=== PATIENT | male | born 1935 | race Caucasian/White ===

== ENCOUNTER 2020-06-13 07:58 | Outpatient (CLI) | payer MEDICARE, OTHER ==
--- NOTE | 2020-06-13 11:07 | CT ---
CT ABDOMEN AND PELVIS WITH ND WITHOUT IV CONTRAST: DATE: 06/13/2020. PROVIDED CLINICAL HISTORY: Hematuria. FINDINGS: Comparison is made with the examination dated 09/23/2019. The visualized lung bases are free of significant opacity. The spleen, pancreas, liver, and adrenal glands appear unremarkable. Small nonobstructing calculi are again seen involving each kidney. There is no evidence for hydronep hrosis. Bilateral renal cysts and additional hypodensities too small to definitively characterize bu t statistically also reflecting cysts are redemonstrated. 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 There is no evidence for filling defect involving the re nal collecting systems or opacified ureters. The urinary bladder appears unremarkable. There is a small bowel containing and fat containing right inguinal hernia without evidence for bowel obstruction or associated inflammatory change. There is no inflammatory fat stranding, free fluid, or lymph node enlargement apparent. Vascular calcifications are demonstrated. Degenerative changes are again seen involving the spine. No concerning lytic or blastic lesions are evident. Stable benign-appearing sclerotic focus within t he left subtrochanteric region. IMPRESSION: 1. Nonobstructing bilateral nephrolithiasis. 2. Right inguinal hernia. POS: [facility]
[2020-06-13] MEDS ORDERED: Iopamidol-370 76% 500 ML 1 ML ONE (13:39)
== END 2020-06-13 07:59 | disposition home or self-care (01) ==
LOC: BICCT 07:58
PROVIDERS: ATTEND Urology
DX: R31.29 Other microscopic hematuria (principal); R82.89 Other abnormal findings on cytological and histological examination of urine; N20.0 Calculus of kidney; K40.90 Unilateral inguinal hernia, without obstruction or gangrene, not specified as recurrent
CPT/HCPCS: 36415; 74178; 80048; Q9967